=== PATIENT | female | born 2005 | race Caucasian/White ===

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

== ENCOUNTER 2025-01-19 19:23 | Emergency (ER) | payer OTHER ==
[~2025-01-19] VITALS: Ht 162.6 cm; Wt 65.9 kg
[2025-01-19 19:33] VITALS: BP 117/79; TEMP 98.4; O2SAT 100
== END 2025-01-19 21:21 | disposition left against medical advice (07) ==
LOC: M ED 19:23
DX: Z53.21 Procedure and treatment not carried out due to patient leaving prior to being seen by health care provider (principal)